=== PATIENT | female | born 1970 | race Caucasian/White ===

== ENCOUNTER → 2025-01-07 15:47 | Outpatient (BNVA) | payer OTHER, SELFPAY | PROVIDERS: PCP Family Medicine; Visit Provider Family Medicine | DX: Z00.00 Encounter for general adult medical examination without abnormal findings (principal); L68.0 Hirsutism; I10 Essential (primary) hypertension; E66.01 Morbid (severe) obesity due to excess calories; Z68.41 Body mass index [BMI] 40.0-44.9, adult; R60.1 Generalized edema; R73.01 Impaired fasting glucose | CPT/HCPCS: 80053; 82088; 83036; 83525; 84403; 84443; 85025 ==

== ENCOUNTER → 2025-04-15 15:48 | Outpatient (BNVA) | payer OTHER, SELFPAY | PROVIDERS: PCP Family Medicine; Visit Provider Family Medicine | DX: I10 Essential (primary) hypertension (principal); E16.1 Other hypoglycemia; R53.83 Other fatigue; E66.01 Morbid (severe) obesity due to excess calories; Z68.41 Body mass index [BMI] 40.0-44.9, adult | CPT/HCPCS: 80053; 82607; 83525 ==